=== PATIENT | male | born 1960 | race Caucasian/White ===

== ENCOUNTER 2017-12-12 10:33 | Emergency (ER) | payer MEDICAID, SELFPAY ==
[2017-12-12 10:34] VITALS: BP 125/80; PULSE 67; RESP 16; TEMP 37; O2SAT 100; BMI 26.1
[2017-12-12 10:39] VITALS: BP 130/70; PULSE 70; RESP 14; O2SAT 100
--- NOTE | 2017-12-12 10:40 | RAD_ITS ---
STUDY: X-RAY CHEST REASON FOR EXAM: Male, 57 years old. CHEST PAIN THAT STARTED LAST NIGHT, HURTS WHEN PT LIES DOWN. HIATAL HERNIA SURGERY 8 MONTHS AGO TECHNIQUE: Single view COMPARISON: Interval 2016 FINDINGS: There is no focal consolidation, pneumothorax or pleural effusion. There is atherosclerotic calcification of the aortic arch with tortuosity. The cardiomediastinal silhouette is unremarkable. There are diffuse degenerative changes of the visualized thoracic spine. RAD/Chest 1 View (Portable) IMPRESSION: No acute pulmonary disease. Electronically Signed: Yen Gardiner MD at 11:37 EST Tel , Service support ,
--- NOTE | 2017-12-12 10:40 | EKG12_ITS ---
Test Reason : CP Blood Pressure : / mmHG Vent. Rate : 066 BPM Atrial Rate : 066 BPM P-R Int : 146 ms QRS Dur : 084 ms QT Int : 404 ms P-R-T Axes : 063 042 049 degrees QTc Int : 423 ms Normal sinus rhythm Normal ECG Confirmed by KARLENE BERNABE ([id number]), sports editor KAYA RIVAS ([id number]) on 12/17/2017 1:47:18 PM Referred By: HUNG Confirmed By:KARLENE BERNABE
--- NOTE | 2017-12-12 10:53 | ED.DCSUM_ITS ---
- ER Visit Summary Date of Service: 12/12/17 Chief Complaint: Right lower chest wall pain History of Present Illness: The patient is a 57 M history of hiatal cardia with surgery and cholecystectomy. No prior cardiac history. States last evening he noticed right lower chest wall discomfort. States when he pushes on that area he feels a pulsation. Denies any radiation to his back, neck, jaw or left arm. No dyspnea. At times he gets a little nauseated. There is no associated with food, eating or drinking fluids. He has had a prior cholecystectomy. He denies any recent chest wall trauma. He denies any abdominal pain. No vomiting or diarrhea. No melena. No fever. No pleuritic chest pain. No dyspnea. No hemoptysis. He has never had a DVT or PE has no risk factors. Is no significant family history of cardiac disease. He has never had a heart cath or stress test. Physical Examination: Very well-appearing middle-age male. Vital signs are stable afebrile. His pulse ox 100% on room air no signs of hypoxia. His blood pressure 125/80. He is in no distress. H EENT exam is unremarkable. Neck is nontender no lymphadenopathy. No JVD. Lungs clear to auscultation bilaterally. Heart regular rate and rhythm no murmur. Chest wall is not really reproducibly tender. There is no ecchymosis or bruising. There is no subcu air or crepitance. His right lower chest wall just lateral to his sternum on the lower ribs is not even really tender easily feels a pulsation there. Is not red, swollen or bruised. Abdomen is soft and nontender normal bowel sounds. No peritoneal signs. Absolutely no right upper quadrant tenderness. No epigastric tenderness. He is moving all 4 extremities. They are neurovascularly intact. Calves are nontender without edema. Neurologically is awake and alert without focal motor deficits. Test Results: See normal. BMP normal. Hepatic panel normal. Lipase normal. Troponin normal. Chest x-ray showed a normal cardiac silhouette and mediastinum no abnormalities in the chest wall or rib cage. EKG is a sinus rhythm rate is 66 with no acute abnormality. Emergency Department Course and Treatment: Likely this definitely does not appear to be cardiac. He has no exertional chest pain or exertional dyspnea. It very well may be be musculoskeletal chest wall pain. He will undergo cardiac workup. Treatment Plan: Repeat exam patient is doing well at 1135. Exam unchanged. He is comfortable being discharged to home. Disposition: Discharge Impression: Right chest wall pain This note was generated with [employer] dictation software. It may contain incorrect words, spelling, and punctuation that were not noted in review of the chart prior to signing ED Disposition - Plan for ED Patient: Chief Complaint: Chest Pain Referrals: Maryellen Ford MD [Primary Care Provider] -
[2017-12-12 11:01] LABS: Absolute Lymphocyte Count 1.27 X10^3/ul (0.83-4.51); Absolute Neutrophil Count 3.1 X10^3/uL (2.0-7.7); Basophil# 0.05 X10^3/uL; Eosinophil# 0.08 X10^3/uL; Eosinophils% 1.5 % (0-5); Hematocrit 42.8 % (40-54); Hemoglobin 14.5 g/dl (13.0-16.5); Lymphocyte # 1.27 X10^3/ul (4.0); Lymphocyte % 24.5 % (19-41); Mean Corp Hgb Conc 33.9 g/gl (32-36); Mean Corpuscular Volume 94.5 fL (80-94); Mean Platelet Vol. 10.5 fl (6.2-12.0); Monocyte# 0.72 X10^3/uL; Monocyte% 13.9 % (0-10); Neutrophil # 3.06 X10^3/uL (2.7-7.7); Neutrophil % 59.1 % (47-70); Platelet Count 218 K/mm3 (150-450); RBC Distribution Width CV 12.5 % (11.6-14.6); RBC Distribution Width SD 42.5 fl (35.1-43.9); Red Blood Count 4.53 M/mm3 (4.6-6.2); White Blood Count 5.2 K/mm3 (4.4-11.0)
[2017-12-12 11:19] LABS: AST(SGOT) 23 U/L (15-37); Alanine Aminotransfer ALT/SGPT 27 U/L (16-61); Albumin, Serum 3.8 g/dL (3.2-5.0); Alkaline Phosphatase 76 U/L (45-117); Anion Gap 7 (5-15); BUN 19 mg/dL (7-18); Bilirubin, Direct 0.11 mg/dL (0.00-0.30); Chloride 102 mmol/L (98-107); EST Glomerular Filtration Rate 81 mL/min (>60); Est Glom Filt Rate - Afr Amer 98 mL/min (>60); Estimated Creatinine Clearance 83.14 ml/min; Globulin 3.8 g/dL (2.2-4.2); Glucose 68 mg/dL (74-106); Lipase 150 U/L (73-393); Potassium 4.1 mmol/L (3.5-5.1); Protein, Total 7.6 g/dL (6.4-8.2); Sodium Level 138 mmol/L (136-145)
--- NOTE | 2017-12-12 11:36 | ED.DEP ---
ED Disposition - Plan for ED Patient: Disposition: Home or Assisted Living Chief Complaint: Chest Pain Instructions: ED Chest Pain Atypical Unkn Cause Referrals: Maryellen Ford MD [Primary Care Provider] - 1 Week if not improving Additional Instructions: Your labs, x-ray and EKG were normal today. Clinically this appears to be a chest wall pain. May use ice to the area and Motrin for pain.
[2017-12-12 11:54] VITALS: BP 127/59; PULSE 71; RESP 16; O2SAT 99
== END 2017-12-12 11:54 | disposition home or self-care (01) ==
PROVIDERS: Emergency Provider Emergency Medicine; Family Provider Internal Medicine; PCP Internal Medicine
DX: R07.89 Other chest pain (principal); R11.0 Nausea; Z90.49 Acquired absence of other specified parts of digestive tract
CPT/HCPCS: 71045; 80048; 80076; 83690; 84484; 85025; 93005; 99284; A4216

== ENCOUNTER → 2018-01-16 12:59 | Outpatient (CLI) | payer MEDICAID, SELFPAY ==
--- NOTE | 2018-01-16 13:02 | RAD_ITS ---
STUDY: X-RAY - LUMBAR SPINE REASON FOR EXAM: Male, 57 years old. Lumbar radiculopathy. TECHNIQUE: 5 view(s) of the lumbar spine were obtained. COMPARISON: None FINDINGS: Normal lumbar lordosis. There is no substantial scoliosis. There is a normal alignment of the vertebrae. Normal vertebral bodies and endplates. Normal disc space heights. There is no demonstrated fracture. The soft tissue structures are unremarkable. RAD/L/S Spine Min 4 Views IMPRESSION: Normal x-ray examination of the lumbar spine. Electronically Signed: Umesh Loo MD at 20:31 EDT , Service support ,
== END ==
PROVIDERS: Visit Provider Chiropractor
DX: M54.16 Radiculopathy, lumbar region (principal)
CPT/HCPCS: 72110

== ENCOUNTER 2018-04-25 11:30 | Outpatient (RCR) | payer MEDICAID, SELFPAY ==
--- NOTE | 2018-02-10 13:40 | HP.PTEVAL_ITS ---
Patient's Visit Information KILLIAN HINSON is a 58 year old M referred to Physical Therapy by Jamaal Couch with a diagnosis of LUMBAR RADICULOPATHY. Date of Evaluation: 02/10/18 Physical Therapist: Sadaf Simon - Visit Plan Frequency: 3x /Week Duration: 3 Weeks Plan: *US AND STM TO RIGHT Tensor Fasciae Latae. POSTURE CORRECTION/ STRENGTHENING, INSTRUCTION IN APPROPRIATE BODY MECHANICS AND ACTIVITY MODIFICATIONS. DLS STARTING WITH A NEUTRAL SPINE PROGRESSING ROM TOLERATED. JESUS LE ROM, STRETCHING AND STRENGTHENING. HEP INSTRUCTION. - Subjective Subjective: Diagnosis: LUMBAR RADICULOPATHY. 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 Disability: NO. Present symptoms: RIGHT LATERAL AND ANTERIOR THIGH PAIN, NUMBENSS AND TINGLIN. NO LOW BACK PAIN. Present since: ABOUT A YEAR AND A HALF AGO. Pain Scale: WORST 7/10, LEAST 3/10. Currently: 4/10. WORSENING. 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 Symptoms at onset: RIGHT THIGH NUMBNESS. Worse: GETTING OUT OF A VEHICLE. PULLING RIGHT LEG TO THE LEFT WHEN SITTING SUCH TO GET OUT OF A CAR AND OTHER. Better: WALK, RIDE BICYCLE. Disturbed sleep: NO. Previous history/Previous treatment: HISTORY OF SCIATICA THE LAST 10 YEARS OFF AND ON ALWAYS EFFECTING THE RIGHT LEG. NO HISTORY OF LLE SCIATICA. HISTORY OF LOW BACK PAIN. CHIROPRACTIC TREATMENTS OFF AND ON FOR 10 YEARS. NO BACK SURGERY. NO BACK INJECTIONS. NO PRESCRIPTION MEDS FOR BACK/SCIATICA IN THE PAST. MASSAGE THERAPY - HELPS. LAST MASSAGE WAS FOUR MONTHS AGO. LAST CHIROPRACTIC VISIT WAS ABOUT 2 WEEKS AGO. TENS UNIT ON RIGHT HIP HELPS. Coughing/sneezing/straining: NEGATIVE. Gait: NORAML. Difficulty initiating urinatin: NO. Accidents: NO. Unexplained weight loss: NO. Imaging: LUMBAR MRI ABOUT A YEAR AGO SHOWING EVERYTING WAS OK PER PATIENT REPORT. LUMBAR X-RAY ABOUT A MONTH AGO - SHOWING NOTHING PER PATIENT REPORT. PMH: LYMES DZ. Recent major surgery: HERNIA REPAIR TWO YEARS AGO, GALLBLADDER REMOVAL 3 YEARS AGO. - Objective Sitting Posture: POOR. Standing Posture: FAIR. Lordosis: REDUCED. Lateral shift: NO. Relevant shift: N/A. Active Correction of posture: NE. Other Observations: INDEP GAIT AND TRANSFERS BUT PATIENT WITH INTERMITTENT C/O PAIN MOVING RIGHT LE BOTH IN STANDING AND SITTING AND WITH BOTH HIP ADD AND ABD. ALSO INTERMITTENTLY WITH RIGHT HIP ROTATIONS. Motor deficit: LLE - 5/5 WITH MMT'ING. RIGHT LE 5/5 WITH MMT'ING EXCEPT HIP GRADED 4+/5 AND RIGHT HIP EXTENSION TESTING PROVOKES RIGHT POSTERIOR HIP MUSCLE SPASM AND PATIENT REPORTS THIS HAPPENS WHEN HE WALKS SOMETIMES TOO. RIGHT HIP ABD, ADD, IR AND ER TESTING PROVOKE RIGHT LATERAL HIP PAIN. Sensory deficit: DECREASED LIGHT TOUCH RIGHT ANTERIOR AND LATERAL THIGH. ROM deficit: JESUS LE ROM IS WFL AND SYMMETRICAL BUT PATIENT HAS PAIN AT THE END OF THE AVAILABLE RANGE OF RIGHT HIP FLEXION AND EXT ROT IN LYING. Dural Signs: NEGATIVE JESUS LE DURAL SIGNS. Lumbar mvmt loss: flex - MIN TO MOD. ext - MOD. R SG - MOD. L SG - MOD. LUMBAR ROM TESTING DOES NOT PROVOKE ANY PAIN EXCEPT LUMBAR FLEX PROVOKES RIGHT LATERAL HIP PAIN AT THE END OF THE AVAILABLE RANGE. Core strength: FAIR. Palpation: PATIENT IS NOT TENDER WITH PALPATION OF THE LUMBOSACRAL AREAS BUT HE IS TENDER JUST DISTAL TO THE RIGHT GREATER TROCH REGION. OTHER: POSITIVE RIGHT LUISA TEST. NEGATIVE LEFT. - Goals Goal 1:: DECREASE C/O RIGHT HIP PAIN AND THIGH NUMBNESS. Goal Time Frame: 4-6 Weeks Goal 2:: IMPROVE GAIT AND TRANSFER FUNCTION Goal Time Frame: 4-6 Weeks Goal 3:: INSTRUCT IN PROPHYLAXIS/INDEP WITH HEP. Goal Time Frame: 4-6 Weeks - Rehabilitation Potential Rehabilitation Potential: Fair - Anticipated Interventions Patient/Client Instruction: Educate patient on: Condition, Plan of Care, Risk Factors, Benefits of Fitness Program For the Purpose of:: To improve self management Therapeutic Exercise to Include: Strength training, Body mechanics, Postural training, Flexibilty training, Dynamic Lumbar Stabilization For the Purpose of:: To improve ability of physical actions for home/community/ work/leisure Manual Therapy Techniques to Include: Soft tissue mobilization For the Purpose of:: To decrease pain, To improve nutrient delivery to tissue Ultrasound (thermal/non thermal): Yes For the Purpose of:: To decrease pain, To improve nutrient delivery to tissue Thank you for the opportunity to evaluate your patient. For Medicare and Medicare HMO plans, please review the plan of care and approve it. It will need to be FAXED BACK to us at [phone] for Medicare purposes. Please let me know if there are questions or concerns regarding this plan of care. Physician Signature: Date:
--- NOTE | 2018-03-10 10:16 | HP.PTREVAL_ITS ---
Jamaal Couch, It has been my pleasure to treat KILLIAN HINSON over the last 8 visits for LUMBAR RADICULOPATHY. Please see the progress note below for an update on the physical therapy plan of care! Subjective: PATIENT REPORTS THE NUMBNESS IS A LOT BETTER. HE REPORTS THE PAIN ON THE SIDE OF HIS HIP IS ALSO DEFINATELY BETTER AND THAT IS WHY HE CAME. HE REPORTS THAT AFTER THE LAST PT SESSION AFTER HE DID AN EX LIFTING HIS ARMS AND LEGS ON HIS STOMACH FOR THE FIRST TIME THE PAIN HE HAS NOW STARTED. HE CONTINUED TO TRY TO DO THE EX FOR 3 DAYS BUT IT JUST GOT WORSE SO HE STOPPED. HE STATES HE FELT LIKE HE WAS WELL ON HIS WAY UNTIL THAT HAPPENDED. THE NUMBNESS IS STILL BETTER THOUGH. UP UNTIL THE LAST APPOINTMENT HE REPORTS IT HAD GOTTEN SO MUCH BETTER THAT HE ALMOST FORGOT ABOUT IT. HE REPORTS HE WAS REALLY TIRED IN HIS BACK AFTER LAST VISIT TOO. Objective/Function: PATIENT IS IMPROVING EVIDENCED BY TESTING BELOW HOWEVER HE DID NOT TOLERATE EX WELL LAST SESSION. RECOMMEND CONTINUED PT FOR EX PROGRESSION WITH APPROPRIATE HEP INSTRUCTION TOLERATED ALONG WITH MODALITIES NEEDED. INDEP GAIT AND TRANSFERS BUT PATIENT WITHOUT C/O PAIN MOVING RIGHT LE NOW. Motor deficit: RIGHT LE 5/5. RIGHT POSTERIOR HIP PAIN IS INCREASED WITH HIP IR TESTING. Sensory deficit: DECREASED LIGHT TOUCH RIGHT LATERAL THIGH REGION IN A MUCH MORE LOCALIZED AREA COMPARED TO INITIAL EVAL. ROM deficit: JESUS LE ROM IS WFL AND SYMMETRICAL BUT PATIENT HAS PAIN AT THE END OF THE AVAILABLE RANGE OF RIGHT HIP INTERNAL ROATION ONLY TODAY. Dural Signs: NEGATIVE JESUS LE DURAL SIGNS. Lumbar mvmt loss: flex - NIL. ext - MOD. R SG - MOD. L SG - MOD. LUMBAR ROM TESTING DOES NOT PROVOKE ANY PAIN TODAY. Core strength: FAIR. OTHER: NEGATIVE RIGHT LUISA TEST. Plan Plan: RECOMMEND CONTINUED PT 2-3 TIMES A WEEK X 3-4 WEEKS FOR EX PROGRESSION WITH APPROPRIATE HEP INSTRUCTION TOLERATED ALONG WITH MODALITIES NEEDED. PATIENT IS AGREEABLE AND WILL FOLLOW UP WITH HIS PHYSICIAN. Goals Goal 1:: DECREASE C/O RIGHT HIP PAIN AND THIGH NUMBNESS. Goal Time Frame: 4-6 Weeks Goal Progress: Progressing Goal 2:: IMPROVE GAIT AND TRANSFER FUNCTION Goal Time Frame: 4-6 Weeks Goal Progress: Progressing Goal 3:: INSTRUCT IN PROPHYLAXIS/INDEP WITH HEP. Goal Time Frame: 4-6 Weeks Goal Progress: Progressing Anticipated Interventions Patient/Client Instruction: Educate patient on: Condition, Plan of Care, Risk Factors, Benefits of Fitness Program For the Purpose of:: To improve self management Therapeutic Exercise to Include: Strength training, Body mechanics, Postural training, Flexibilty training, Dynamic Lumbar Stabilization For the Purpose of:: To improve ability of physical actions for home/community/ work/leisure Manual Therapy Techniques to Include: Soft tissue mobilization For the Purpose of:: To decrease pain, To improve nutrient delivery to tissue Ultrasound (thermal/non thermal): Yes For the Purpose of:: To decrease pain, To improve nutrient delivery to tissue Please do not hesitate to contact me at [phone] by phone or Fax: if you have questions or concerns regarding this new plan of care! Sincerely, Sadaf Simon
--- NOTE | 2018-08-07 12:45 | HP.PT.NRP ---
HP - Discharge Summary (1) - Patient Information KILLIAN HINSON was seen in my office for initial evaluation on 02/10/18. The following Plan of Care was established for this patient: Initial Frequency: 3x /Week Initial Duration: 3 Weeks - Anticipated Interventions Patient/Client Instruction: Educate patient on: Condition, Plan of Care, Risk Factors, Benefits of Fitness Program For the Purpose of:: To improve self management Therapeutic Exercise to Include: Strength training, Body mechanics, Postural training, Flexibilty training, Dynamic Lumbar Stabilization For the Purpose of:: To improve ability of physical actions for home/community/work/leisure Manual Therapy Techniques to Include: Soft tissue mobilization For the Purpose of:: To decrease pain, To improve nutrient delivery to tissue Ultrasound (thermal/non thermal): Yes For the Purpose of:: To decrease pain, To improve nutrient delivery to tissue This patient was last seen in our office . Pertinent comments regarding their Physical therapy will appear below: This patient has not returned to Physical Therapy and is appropriate to return to MD for further follow-up as needed. At this point I will be discontinuing this patient from physical therapy. I would be happy to see this patient again in the future if found appropriate by the physician. Thank you! Sadaf Simon
== END 2018-04-25 19:00 | disposition home or self-care (01) ==
LOC: PT 11:30
PROVIDERS: Visit Provider Chiropractor
DX: M54.16 Radiculopathy, lumbar region (principal)
CPT/HCPCS: 97035; 97110; 97140; 97162; 97530

== ENCOUNTER → 2019-12-21 07:53 | Outpatient (CLI) | payer MEDICAID, SELFPAY | DX: D64.9 Anemia, unspecified (principal) | CPT/HCPCS: 36415 ==

== ENCOUNTER 2022-08-02 12:30 | Outpatient (RCR) | payer MEDICAID, SELFPAY ==
--- NOTE | 2022-07-24 09:01 | HP.PTEVAL_ITS ---
Patient's Visit Information KILLIAN HINSON is a 62 year old M referred to Physical Therapy by MARIO Boudreaux with a diagnosis of SHOULDER INJURY , INTIAL. Date of Evaluation: 07/24/22 Physical Therapist: Lobo Mcclendon PT, Cert MDT, OCS - Visit Plan Frequency: 2x /Week Duration: 4 Weeks Plan: PT INTERVETIONS RTC/SCAPULAR STRENGTHENING ,POSTURAL EX'S AND FLEXABLITY AND PATIENT EDUCATION - Subjective This 62 y/o male presents to physical therapy with right shoulder pain . Patient injury to shoulder when ~ 2 months with no mechanism injury just insidious onset of pain. Patient seen DR recommended PT no meds and had x-rays which was negative. Patient pain located to lateral deltoid but do have symptoms in fingers. Aggravating factors lifting ,raising arm OH , job demands and housework tasks. Alleviating factors ice . Patient denies paresthesia/tingling. Patient sleeping good. No h/o injury or trauma. Patient goal to have no pain. Patient pain affects QOL and function/job demands. [employer]: [employer] SOCIAL: - Pain Right Shoulder Pain Intensity (Out of 10): 4 Pain Intensity Range: 10 - Objective POSTURE: mild forward posture. PALAPTION: tender AC. NEURO: denies paresthesia/tingling ,reflexes C5-6-7 2/3. AROM: shoulder flexion 150 degrees ,abduction 150 degrees ,ER 90 ,IR L2. MMT: RTC 4/5 ( infraspinatus, subscapularis , supraspinatus ) ,deltoid 4-/5. CERVICAL ROM: flexion WFL ,extension min loss, lateral flexion /rotation WFL - Special Tests C/S Radiculapathy - Left Upper limb tension test: Negative C/S Radiculapathy - Right Upper limb tension test: Negative C/S Radiculapathy - Left Spurlings: Negative C/S Radiculapathy - Right Spurlings: Negative C/S Radiculapathy - Left Cervical distraction: Negative C/S Radiculapathy - Right Cervical distraction: Negative R Shoulder Lift Off Test - Subscapular Tear: Negative R Shoulder Empty Can - SS: Positive R Shoulder Neer - Impingement: Positive R Shoulder Yoo Andrei - Impingement: Positive - Balance/Special Test Scores Quick DASH Score: 27.2725 - Goals Goal 1:: I with HEP for shoulder Goal Time Frame: 4-6 Weeks Goal 2:: Improve postural awareness 80% with job demands. Goal Time Frame: 4-6 Weeks Goal 3:: Patient to improve ability to lift OH and raise arm above 90 degrees for functional activities. Goal Time Frame: 4-6 Weeks Goal 4:: Patient to demonstrate 50 % with improved function and less pain Goal Time Frame: 4-6 Weeks Goal 5:: Patient to patient improve quick dash by 5 points to improve function. Goal Time Frame: 4-6 Weeks - Rehabilitation Potential Physical Therapy Diagnosis: This patient has shoulder tendinosis with pain which has + impingement impairs activities above 90 degrees and lifting thus benefit from skilled PT Rehabilitation Potential: Good - Anticipated Interventions Patient/Client Instruction: Educate patient on: Condition, Plan of Care For the Purpose of:: To decrease pain, To increase ROM, To improve muscle performance and motor function, To increase tolerance to activity/condition/position, To improve ability of physical actions for home/community/work/leisure, To improve health of tissue, To decrease soft tissue restriction, To increase flexibility/ROM, To prevent re-injury, To improv e tolerance to ADL's Therapeutic Exercise to Include: Strength training, Postural training, Flexibilty training, Scapular Strength/Stabilization Comment: RTC STRENGTHENING For the Purpose of:: To decrease pain, To increase ROM, To improve muscle performance and motor function, To improve ability to perform ADL's, To increase tolerance to activity/condition/position, To improve ability of physical actions for home/community/work/leisure, To improve health of tissue, To decrease soft tissue restriction, To increase flexibility/ROM, To prevent re-injury TENS: Yes IF ES: Yes Thermo therapy (hot pack): Yes Ultrasound (thermal/non thermal): Yes For the Purpose of:: To decrease pain, To increase ROM, To improve health of tissue, To decrease soft tissue restriction Thank you for the opportunity to evaluate your patient. For Medicare and Medicare HMO plans, please review the plan of care and approve it. It will need to be FAXED BACK to us at [phone] for Medicare purposes. For Medicare only, by signing this I certify the plan of care. Please let me know if there are questions or concerns regarding this plan of care. Physician Signature: Date:
--- NOTE | 2022-10-12 11:19 | HP.PT.NRP ---
KILLIAN HINSON was seen in my office for initial evaluation on 07/24/22. The following Plan of Care was established for this patient: Initial Frequency: 2x /Week Initial Duration: 4 Weeks Patient/Client Instruction: Educate patient on: Condition, Plan of Care For the Purpose of:: To decrease pain, To increase ROM, To improve muscle performance and motor function, To increase tolerance to activity/condition/position, To improve ability of physical actions for home/community/work/leisure, To improve health of tissue, To decrease soft tissue restriction, To increase flexibility/ROM, To prevent re-injury, To improve tolerance to ADL's Therapeutic Exercise to Include: Strength training, Postural training, Flexibilty training, Scapular Strength/Stabilization For the Purpose of:: To decrease pain, To increase ROM, To improve muscle performance and motor function, To improve ability to perform ADL's, To increase tolerance to activity/condition/position, To improve ability of physical actions for home/community/work/leisure, To improve health of tissue, To decrease soft tissue restriction, To increase flexibility/ROM, To prevent re-injury TENS: Yes IF ES: Yes Thermo therapy (hot pack): Yes Ultrasound (thermal/non thermal): Yes For the Purpose of:: To decrease pain, To increase ROM, To improve health of tissue, To decrease soft tissue restriction This patient was last seen in our office . Pertinent comments regarding their Physical therapy will appear below: Patient was seen for PT for HEP for shoulder strengthening thus is d/c At this point I will be discontinuing this patient from physical therapy. I would be happy to see this patient again in the future if found appropriate by the physician. Thank you! Lobo Mcclendon, PT, Cert MDT, OCS Balance/Gait/Functional tests - Balance/Special Test Scores Quick DASH Score: [phone]
== END 2022-08-02 19:00 | disposition home or self-care (01) ==
LOC: PT 12:30
PROVIDERS: Referring Provider Nurse Practitioner Family; Visit Provider Nurse Practitioner Family
DX: S49.90XD Unspecified injury of shoulder and upper arm, unspecified arm, subsequent encounter (principal); X58.XXXD Exposure to other specified factors, subsequent encounter
CPT/HCPCS: 97110; 97161

== ENCOUNTER → 2022-12-29 | Outpatient (CLI) | payer MEDICAID, SELFPAY ==
[2022-12-29 14:45] LABS: Absolute Lymphocyte Count 1.35 X10^3/uL (0.83-4.51); Absolute Neutrophil Count 2.4 X10^3/uL (2.0-7.7); Basophil# 0.05 X10^3/uL; Basophil% 1.1 % (0-1); Eosinophil# 0.15 X10^3/uL; Eosinophils% 3.3 % (0-5); Hematocrit 44.9 % (40-54); Hemoglobin 15.2 g/dL (13.0-16.5); Lymphocyte # 1.35 X10^3/ul (0.83-4.51); Lymphocyte % 29.6 % (19-41); Mean Corp Hgb Conc 33.9 g/dL (32-36); Mean Corpuscular Hgb 32.6 pg (27.0-32.0); Mean Corpuscular Volume 96.4 fL (80-94); Mean Platelet Vol. 10.9 fl (6.2-12.0); Monocyte# 0.63 X10^3/uL; Monocyte% 13.8 % (0-10); NRBC Flagged by Analyzer 0 % (0-5); Neutrophil # 2.37 X10^3/uL (2.7-7.7); Platelet Count 237 K/mm3 (150-450); RBC Distribution Width CV 12.9 % (11.6-14.6); RBC Distribution Width SD 46.1 fl (35.1-43.9); Red Blood Count 4.66 M/mm3 (4.6-6.2); White Blood Count 4.6 K/mm3 (4.4-11.0)
[2022-12-29 14:55] LABS: ALB/GLOB Ratio 1.1 RATIO (0.9-2.4); AST(SGOT) 88 U/L (15-37); Alanine Aminotransfer ALT/SGPT 110 U/L (16-61); Albumin, Serum 3.9 g/dL (3.2-5.0); Alkaline Phosphatase 62 U/L (45-117); Anion Gap 6 (5-15); BUN 28 mg/dL (7-18); BUN/Creat Ratio 29.5 RATIO (10-20); Calcium,Total 9.5 mg/dL (8.5-10.1); Chloride 104 mmol/L (98-107); Creatinine, Serum 0.95 mg/dL (0.70-1.30); EST Glomerular Filtration Rate 85 mL/min (>60); Est Glom Filt Rate - Afr Amer 103 mL/min (>60); Globulin 3.7 g/dL (2.2-4.2); Glucose 97 mg/dL (74-106); Potassium 4.4 mmol/L (3.5-5.1); Protein, Total 7.6 g/dL (6.4-8.2); Sodium Level 139 mmol/L (136-145)
[2023-01-02 17:07] LABS: Red Blood Cell Count Test/G6PD 4.61 x10E6/uL (4.14-5.80)
[2023-01-02 21:28] LABS: G6PD Quant Test 252 (127-427)
== END | disposition home or self-care (01) ==
PROVIDERS: Visit Provider Nurse Practitioner Family
DX: B60.09 Other babesiosis (principal); A69.20 Lyme disease, unspecified
CPT/HCPCS: 80053; 82955; 85025

== ENCOUNTER → 2024-06-09 | Outpatient (CLI) | payer MEDICARE, OTHER, SELFPAY ==
[2024-06-09 17:05] LABS: Absolute Lymphocyte Count 1.06 X10^3/uL (0.83-4.51); Absolute Neutrophil Count 3.8 X10^3/uL (2.0-7.7); Basophil# 0.05 X10^3/uL; Basophil% 0.9 % (0-1); Eosinophil# 0.06 X10^3/uL; Eosinophils% 1.1 % (0-5); Hematocrit 49.1 % (40-54); Hemoglobin 16.5 g/dL (13.0-16.5); Lymphocyte # 1.06 X10^3/ul (0.83-4.51); Lymphocyte % 19.3 % (19-41); Mean Corp Hgb Conc 33.6 g/dL (32-36); Mean Corpuscular Hgb 32.4 pg (27.0-32.0); Mean Corpuscular Volume 96.5 fL (80-94); Monocyte# 0.53 X10^3/uL; Monocyte% 9.7 % (0-10); NRBC Flagged by Analyzer 0 % (0-5); Neutrophil # 3.77 X10^3/uL (2.7-7.7); Neutrophil % 68.8 % (47-70); Platelet Count 232 K/mm3 (150-450); RBC Distribution Width CV 12.1 % (11.6-14.6); RBC Distribution Width SD 43.5 fl (35.1-43.9); Red Blood Count 5.09 M/mm3 (4.6-6.2); White Blood Count 5.5 K/mm3 (4.4-11.0)
[2024-06-09 17:25] LABS: AST(SGOT) 27 U/L (15-37); Alanine Aminotransfer ALT/SGPT 23 U/L (16-61); Albumin, Serum 4.3 g/dL (3.2-5.0); Alkaline Phosphatase 88 U/L (45-117); Anion Gap 6 (5-15); BUN 19 mg/dL (7-18); BUN/Creat Ratio 18.4 RATIO (10-20); Calcium,Total 9.9 mg/dL (8.5-10.1); Chloride 100 mmol/L (98-107); Cholesterol 294 mg/dL (200); Creatinine, Serum 1.03 mg/dL (0.70-1.30); EST Glomerular Filtration Rate 77 mL/min (>60); Est Glom Filt Rate - Afr Amer 93 mL/min (>60); Ferritin 123 ng/mL (26-388); Globulin 4.4 g/dL (2.2-4.2); Glucose 78 mg/dL (74-106); High Density Lipoprotein 72 mg/dL; Iron 116 ug/dL (65-175); Potassium 4.3 mmol/L (3.5-5.1); Protein, Total 8.7 g/dL (6.4-8.2); Sodium Level 134 mmol/L (136-145); Triglycerides 128 mg/dL; Very Low Density Lipoprotein 26 mg/dL (5-40)
[2024-06-09 17:33] LABS: Hemoglobin A1c 5.6 % (3.8-5.6)
[2024-06-11 04:08] LABS: DHEA Sulfate 59.1 ug/dL (30.9-295.6)
== END | disposition home or self-care (01) ==
LOC: LABSPEC 16:09
PROVIDERS: Visit Provider Nurse Practitioner Family
DX: B60.09 Other babesiosis (principal); A68.1 Tick-borne relapsing fever; M79.673 Pain in unspecified foot; M79.606 Pain in leg, unspecified; A44.0 Systemic bartonellosis; R53.83 Other fatigue; F41.9 Anxiety disorder, unspecified; R06.00 Dyspnea, unspecified
CPT/HCPCS: 80053; 80061; 82627; 82728; 83036; 83540; 84403; 85025; 82626

== ENCOUNTER 2024-07-31 09:11 | Emergency (ER) | payer MEDICARE, OTHER, SELFPAY ==
[2024-07-31 09:13] VITALS: BP 125/82; PULSE 99; RESP 18; TEMP 36.6; O2SAT 100; BMI 27.1
--- NOTE | 2024-07-31 09:43 | RAD_ITS ---
STUDY: X-RAY CHEST REASON FOR EXAM: Male, 64 years old. Right anterior chest pain. Rib pain. No known injury. TECHNIQUE: PA and lateral views of the chest. COMPARISON: Comparison is made with prior study dated December 12, 2012. FINDINGS: The lungs are clear and expanded. There is no demonstrated pleural abnormality. Normal size heart. Normal mediastinum and camilla. Normal visualized pulmonary arteries. Normal visualized aortic arch and descending thoracic aorta. There are degenerative changes of the visualized thoracic spine. Normal visualized ribs, clavicles, and shoulders. There is no demonstrated abnormality of the visualized soft tissue structures of the upper abdomen. RAD/Chest PA and Lateral IMPRESSION: Normal x-ray examination of the chest. Electronically Signed: Jorge A Hu MD at 10:11 EDT ,
[2024-07-31 09:46] LABS: Absolute Lymphocyte Count 0.91 X10^3/uL (0.83-4.51); Absolute Neutrophil Count 3.3 X10^3/uL (2.0-7.7); Basophil# 0.04 X10^3/uL; Basophil% 0.8 % (0-1); Eosinophil# 0.03 X10^3/uL; Eosinophils% 0.6 % (0-5); Hematocrit 44.5 % (40-54); Hemoglobin 14.9 g/dL (13.0-16.5); Lymphocyte # 0.91 X10^3/ul (0.83-4.51); Lymphocyte % 18.9 % (19-41); Mean Corp Hgb Conc 33.5 g/dL (32-36); Mean Corpuscular Hgb 31.4 pg (27.0-32.0); Mean Corpuscular Volume 93.9 fL (80-94); Mean Platelet Vol. 9.7 fl (6.2-12.0); Monocyte# 0.58 X10^3/uL; NRBC Flagged by Analyzer 0 % (0-5); Neutrophil # 3.25 X10^3/uL (2.7-7.7); Neutrophil % 67.5 % (47-70); Platelet Count 220 K/mm3 (150-450); RBC Distribution Width CV 12.2 % (11.6-14.6); RBC Distribution Width SD 42.5 fl (35.1-43.9); Red Blood Count 4.74 M/mm3 (4.6-6.2); White Blood Count 4.8 K/mm3 (4.4-11.0)
[2024-07-31 10:03] LABS: ALB/GLOB Ratio 0.9 RATIO (0.9-2.4); AST(SGOT) 23 U/L (15-37); Alanine Aminotransfer ALT/SGPT 20 U/L (16-61); Albumin, Serum 3.5 g/dL (3.2-5.0); Alkaline Phosphatase 72 U/L (45-117); Anion Gap 5 (5-15); BUN 21 mg/dL (7-18); BUN/Creat Ratio 18.3 RATIO (10-20); Calcium,Total 9.2 mg/dL (8.5-10.1); Chloride 105 mmol/L (98-107); Creatinine, Serum 1.15 mg/dL (0.70-1.30); EST Glomerular Filtration Rate 68 mL/min (>60); Est Glom Filt Rate - Afr Amer 82 mL/min (>60); Estimated Creatinine Clearance 68.21 ml/min; Glucose 150 mg/dL (74-106); Lipase 29 U/L (13-75); Potassium 4.2 mmol/L (3.5-5.1); Protein, Total 7.5 g/dL (6.4-8.2); Sodium Level 137 mmol/L (136-145); Troponin-I HS < 3 pg/mL (3.0-78.0)
[2024-07-31 10:04] LABS: Bacteria 0 SEEN /hpf (None Seen); Squamous Epithelial Cells - UA 0 SEEN /hpf (0-5); White Blood Cells 0 SEEN /hpf (0-5)
[2024-07-31 10:38] LABS: Color, Urine Yellow (Yellow); Glucose, Dipstick Normal (Normal); Ketone-Dipstick Negative (Negative); Leukocyte Esterase-Dipstick Negative /ul (Negative); Nitrite-Dipstick Negative (Negative); Occult Blood-Urine 10 /ul (Negative); Protein-Dipstick 30 mg/dl (Negative); Urine Bilirubin Dipstick Negative (Negative); Urine Clarity Clear (Clear); Urine Urobilinogen Normal (Normal)
[2024-07-31 10:53] LABS: Mucous, Urine 1+ /hpf (<or=2+); Red Blood Cells-Urine 0-5 SEEN /hpf (0-5)
[2024-07-31 10:55] LABS: D-Dimer Quantitative (DVT/PE) 0.27 FEU/ug/m (0.27-0.49)
[2024-07-31 11:12] VITALS: BP 136/84
--- NOTE | 2024-07-31 12:11 | EDS_ITS ---
HPI History of Present Illness Chief Complaint: Abd Pain Narrative Narrative: Patient is a 64-year-old male with no known significant past medical history who presents to the emergency department with a chief complaint of upper abdominal pain on the right side/right lower rib pain. Patient states that he has had his gallbladder removed. He states that the abdominal pain feels like it did when he had a gallbladder attack. Patient states that this pain started last evening and when he woke up was still there which prompted him to come here for the valuation management. Patient denies any recent sick contacts. Patient denies any history of blood clots denies any recent travel history. Patient states that he does not have anything that makes his pain better or worse.. Patient rated his pain a 6 out of 10. PFSH PFSH Home Medications ?Medication ?Instructions ?Recorded ?Last Taken ?Type hyoscyamine sulfate 0.125 mg 0.125 mg PO Q6H PRN dyspepsia #30 07/31/24 Unknown Rx tablet (Levsin) tabs ondansetron 4 mg disintegrating 4 mg PO Q6H PRN nausea and 07/31/24 Unknown Rx tablet vomiting #20 tabs Allergy/AdvReac Type Severity Reaction Status Date / Time No Known Allergies Allergy Verified 07/31/24 09:15 Social History Smoking Status: Never smoker ROS ROS ED ROS Narrative Constitutional: Denies any fevers, chills, headaches, lightness, dizziness Eyes: Denies change in vision double vision blurry vision Cardiovascular: Denies chest pain or palpitations Respiratory: Denies coughing wheezing shortness of breath Abdomen: Complains of abdominal pain as noted above and nausea denies vomiting or diarrhea : Denies painful induration, hematuria and polyuria Neurological: Denies any numbness, wheeze, tingling Musculoskeletal: Complains of right rib pain as well denies any injuries Skin: Denies any rashes or lesions EXAM Physical Exam Narrative Exam Narrative: General: Patient was lying in bed rest comfortably did not appear to be in acute distress Head: Atraumatic, normocephalic Eyes: PERRL bilateral, EOMI bilateral, no conjunctival injection noted Neck: Soft, supple, trachea midline Cardiovascular: Regular rate and rhythm no murmurs gallops rubs noted Respiratory: Clear to auscultation bilaterally Abdomen: Soft, nondistended, nontender to palpation, bowel sounds present x 4 Musculoskeletal: Patient had some tenderness palpation over the right lower rib cage Extremities: +5/5 strength noted in the bilateral lower extremities, no pedal edema on exam, radial pulses +2/4 in the bilateral extremities Neurological: Patient following commands knew that he was at [facility] years 2023 Skin: Warm, dry, intact Const Vital Signs: 07/31/24 09:13 07/31/24 11:12 07/31/24 12:13 Temperature 97.9 F 98 F Temperature Source Oral Pulse Rate 99 69 Respiratory Rate 18 16 Blood Pressure 125/82 H 136/84 H 136/84 H Blood Pressure Mean 96 101 101 Pulse Ox 100 99 Oxygen Delivery Method Room Air MDM MDM MDM Narrative Medical decision making narrative: Patient is a 64-year-old male who presented to the emergency department chief complaint of right sided abdominal pain/lower rib pain. Patient will have a workup formed here on the differential diagnose includes but not limited to ACS, pneumothorax, pneumonia, upper respiratory effect second viral etiology, viral gastroenteritis, PE. Once workup is obtained reviewed he will be reevaluated. Patient's CBC was reviewed and was largely unremarkable no evidence leukocytosis white blood count normal at 4.8, hemoglobin stable 14.9, platelet count was noted be normal at 220. Patient's sodium normal at 137, potassium normal 4.2, creatinine normal at 1.15. Patient's AST and ALT were normal at 23 and 20 respectively. Patient's troponin was normal at less than 3 EKG was reviewed and independently interpreted by myself which showed sinus rhythm with a rate of 83 bpm. Patient's lipase normal at 29, urinalysis did not reveal any evidence infection. Patient's chest x-ray was reviewed by myself and by radiology which showed no acute cardiopulmonary processes. Given the patient's workup here is largely unremarkable and his abdomen remains benign will add on a D-dimer. Patient's D-dimer was reviewed and was noted be normal at 0.27. At 12:15 PM repeat abdominal exam was performed in the patient's abdomen, remains completely benign no tenderness palpation. Patient does feel better he would like to go home at this point time. He will be given prescription for Levsin and Zofran. He is advised to follow-up with his primary care physician outpatient setting. He is encouraged return with worsening symptoms or other concerns he is agreeable this plan all question concerns answered he is discharged home in stable condition. Lab Data Labs: Laboratory Results - last 24 hr 07/31/24 07/31/24 07/31/24 09:41 09:58 10:35 WBC 4.8 RBC 4.74 Hgb 14.9 Hct 44.5 MCV 93.9 MCH 31.4 MCHC 33.5 RDW Std Deviation 42.5 RDW Coeff of Katarzyna 12.2 Plt Count 220 MPV 9.7 Immature Gran % (Auto) 0.200 Neut % (Auto) 67.5 Lymph % (Auto) 18.9 L [place] % (Auto) 12.0 H Eos % (Auto) 0.6 Baso % (Auto) 0.8 Absolute Neuts (auto) 3.3 Absolute Lymphs (auto) 0.91 Nucleated RBC % 0 D-Dimer Quant (PE/DVT) 0.27 Sodium 137 Potassium 4.2 Chloride 105 Carbon Dioxide 27.0 Anion Gap 5 BUN 21 H Creatinine 1.15 Estim Creat Clear Calc 68.21 Est GFR (MDRD) Af Amer 82 Est GFR (MDRD) Non-Af 68 BUN/Creatinine Ratio 18.3 Glucose 150 H Calcium 9.2 Total Bilirubin 0.60 AST 23 ALT 20 Alkaline Phosphatase 72 Troponin I High Sens < 3 L Total Protein 7.5 Albumin 3.5 Globulin 4.0 Albumin/Globulin Ratio 0.9 Lipase 29 Urine Color Yellow Urine Clarity Clear Urine pH 6.0 Ur Specific [place] 1.020 Urine Protein 30 H Urine Glucose (UA) Normal Urine Ketones Negative Urine Occult Blood 10 H Urine Nitrite Negative Urine Bilirubin Negative Urine Urobilinogen Normal Ur Leukocyte Esterase Negative Urine RBC 0-5 SEEN Urine WBC 0 SEEN Ur Squamous Epith Cells 0 SEEN Urine Bacteria 0 SEEN Urine Mucus 1+ Radiography Diagnostic Testing: Clinical Impression(s) from Imaging Studies Chest X-Ray 07/31/24 09:43 IMPRESSION: Normal x-ray examination of the chest. Electronically Signed: Jorge A Hu MD at 10:11 EDT , Discharge Plan Triage Chief Complaint: Abd Pain ED Provider: Jonh Stanford Dx/Rx/DC Orders Clinical Impression: Abdominal pain Instructions: ED Abdominal Pain Unkn Cause Male... Prescriptions: New hyoscyamine sulfate [Levsin] 0.125 mg tablet 0.125 mg PO Q6H PRN (Reason: dyspepsia) Qty: 30 0RF ondansetron 4 mg tablet,disintegrating 4 mg PO Q6H PRN (Reason: nausea and vomiting) Qty: 20 0RF Primary Care Provider: Care Physician,No Primary Referrals: Yoel Clayton MD [Non-Staff] - Care Physician,No Primary [Primary Care Provider] - Activity Restrictions/Additional Instructions: Follow-up with your primary care physician outpatient setting. Return with worsening symptoms or other concerns. Take prescriptions are sent to your pharmacy as prescribed for pain control. Your blood work here today was all normal as well as your chest x-ray Print Language: U[place] Disposition Disposition: Home, Self Care
[2024-07-31 12:13] VITALS: BP 136/84; PULSE 69; RESP 16; TEMP 36.6; O2SAT 99
== END 2024-07-31 12:17 | disposition home or self-care (01) ==
PROVIDERS: Emergency Provider Emergency Medicine; Visit Provider Emergency Medicine
DX: R10.11 Right upper quadrant pain (principal)
CPT/HCPCS: 71046; 80053; 81001; 83690; 84484; 85025; 85379; 93005; 99282; A4216